=== PATIENT | male | born 1995 | race Caucasian/White ===

== ENCOUNTER 2017-07-05 19:02 | Emergency (ER) | payer OTHER ==
[~2017-07-05] VITALS: Ht 172.7 cm; Wt 73.5 kg
[2017-07-05 19:11] VITALS: Ht 172.7 cm; Wt 73.5 kg
[2017-07-05 20:24] LABS: BASOPHIL % 0.4 % (0-2); PLATELET COUNT 288 x10^3mcL (130-400); RED CELL DISTRIBUTION WIDTH 14.2 % (11.5-14.5)
[2017-07-05 20:34] LABS: CALCIUM 9.5 mg/dL (8.5-10.1); CHLORIDE SERUM 102 mmol/L (98-107); GFR1 > 60 mL/min; GLUCOSE SERUM 112 mg/dL (74-106); POTASSIUM SERUM 3.3 mmol/L (3.5-5.1); SODIUM SERUM 142 mmol/L (136-145)
[2017-07-05 20:47] LABS: ALBUMIN 4.6 g/dL (3.4-5.0); ALKALINE PHOSPHATASE 80 U/L (46-116); ALT/SGPT 149 U/L (16-63); AST/SGOT 351 U/L (15-37); BILIRUBIN TOTAL 0.5 mg/dL (0.20-1.00); T4(THYROXINE) 9.6 ug/dL (4.7-13.3); TOTAL PROTEIN, SERUM 8.4 g/dL (6.4-8.2)
[2017-07-05 21:49] VITALS: BP 138/98
== END 2017-07-05 21:49 | disposition home or self-care (01) ==
LOC: ED 19:02
PROVIDERS: Emergency Medicine
DX: R00.0 Tachycardia, unspecified (principal); F41.9 Anxiety disorder, unspecified
CPT/HCPCS: 36415

== ENCOUNTER 2017-07-07 16:17 | Emergency (ER) | payer SELFPAY ==
[~2017-07-07] VITALS: Ht 172.7 cm; Wt 74.8 kg
[2017-07-07 16:23] VITALS: Ht 172.7 cm; Wt 74.8 kg
[2017-07-07 18:09] VITALS: BP 151/87
== END 2017-07-07 18:09 | disposition home or self-care (01) ==
LOC: ED 16:17
DX: F41.9 Anxiety disorder, unspecified (principal); Z86.59 Personal history of other mental and behavioral disorders

== ENCOUNTER 2017-09-04 12:46 | Emergency (ER) | payer SELFPAY ==
[~2017-09-04] VITALS: Ht 177.8 cm; Wt 73.7 kg
[2017-09-04 12:56] VITALS: BP 143/74
[2017-09-04 13:19] LABS: BASOPHIL % 0.5 % (0-2); PLATELET COUNT 243 x10^3mcL (130-400); RED CELL DISTRIBUTION WIDTH 13.7 % (11.5-14.5)
[2017-09-04 13:34] LABS: CALCIUM 9.3 mg/dL (8.5-10.1); CREATININE SERUM 0.9 mg/dL (0.7-1.3); GFR1 > 60 mL/min; GLUCOSE SERUM 94 mg/dL (74-106)
[2017-09-04 13:36] LABS: ALBUMIN 4.1 g/dL (3.4-5.0); CARBON DIOXIDE 27.9 mmol/L (21-32); CHLORIDE SERUM 101 mmol/L (98-107); LIPASE 96 IU/L (73-393); POTASSIUM SERUM 3.5 mmol/L (3.5-5.1); SODIUM SERUM 139 mmol/L (136-145)
[2017-09-04 14:10] LABS: ALKALINE PHOSPHATASE 84 U/L (46-116); ALT/SGPT 40 U/L (16-63); AST/SGOT 15 U/L (15-37); BILIRUBIN TOTAL 0.4 mg/dL (0.20-1.00); TOTAL PROTEIN, SERUM 8.2 g/dL (6.4-8.2)
== END 2017-09-04 14:49 | disposition home or self-care (01) ==
LOC: ED 12:46
PROVIDERS: Emergency Medicine
DX: R10.9 Unspecified abdominal pain (principal)
CPT/HCPCS: 36415